=== PATIENT | female | born 1970 | race Caucasian/White ===

== ENCOUNTER 2021-06-07 05:19 | Inpatient (IN) | payer OTHER ==
[~2021-06-07] VITALS: Ht 177.8 cm; Wt 81.8 kg
[2021-06-07 05:46] LABS: BASOPHILS # (AUTO) 0.1 X10'3 (0-0.2); BASOPHILS % (AUTO) 0.6 % (0-1); EOSINOPHILS # (AUTO) 0.1 X10'3 (0-0.9); EOSINOPHILS % (AUTO) 0.7 % (0-6); HEMATOCRIT 38.7 % (35.0-45.0); HEMOGLOBIN 13.1 g/dl (12.0-16.0); LYMPHOCYTES # (AUTO) 2.4 X10'3 (1.1-4.8); LYMPHOCYTES % (AUTO) 27.3 % (21-51); MEAN CORPUSCULAR HEMOGLOBIN 33.4 PG (27.0-31.0); MEAN CORPUSCULAR HGB CONC 33.9 g/dL (33.0-36.5); MEAN CORPUSCULAR VOLUME 98.8 FL (78-98); MEAN PLATELET VOLUME 9.4 FL (7.4-10.4); MONOCYTES # (AUTO) 0.6 X10'3 (0-0.9); MONOCYTES % (AUTO) 6.7 % (2-12); NEUTROPHILS # (AUTO) 5.8 X10'3 (1.8-7.7); NEUTROPHILS % (AUTO) 64.7 % (42-75); PLATELET COUNT 236 X10'3 (140-440); RED BLOOD COUNT 3.92 X10'6 (4.20-5.60); RED CELL DISTRIBUTION WIDTH 14.6 % (11.5-14.5); WHITE BLOOD COUNT 8.9 X10'3 (4.5-11.0)
[2021-06-07] MEDS: heparin 25,000 UNIT/250ml bag 250 ML IV SCH (05:51)
[2021-06-07 05:59] LABS: APTT 37 SECONDS (22-32)
[2021-06-07 06:03] LABS: ALBUMIN 3.5 G/DL (3.4-5.0); ANION GAP 11 (8-16); BLOOD UREA NITROGEN 15 MG/DL (7-18); BUN/CREATININE RATIO 16.3 (6.6-38.0); CHLORIDE 104 MMOL/L (99-107); CREATININE 0.92 MG/DL (0.40-0.90); GLUCOSE 130 MG/DL (70-104); POTASSIUM 3.9 MMOL/L (3.5-5.1); SODIUM 139 MMOL/L (135-145); TOTAL CARBON DIOXIDE 23.9 MMOL/L (24-32); eGFR 65 ML/MIN
--- NOTE | 2021-06-07 13:13 | NUR ---
RESP PAGED FOR LI CONKLIN.
[2021-06-07] MEDS ORDERED: potassium Cl 20 mEq SR tablet PO PRN (13:55)
[2021-06-07] MEDS ORDERED: acetaminophen 325mg tablet PO PRN (13:55)
[2021-06-07] MEDS ORDERED: magnesium 4gm in 100ml NS 100 ML IV PRN (13:55)
[2021-06-07] MEDS ORDERED: magnesium Cl slow-release 64mg tablet PO PRN (13:55)
[2021-06-07] MEDS ORDERED: ondansetron/PF 4mg/2ml inj IV PRN (13:55)
[2021-06-07] MEDS ORDERED: mag hydrox/Alum hydrox/simeth 30ml oral suspension PO PRN (13:55)
[2021-06-07] MEDS ORDERED: magnesium 2GM in 50ml NS 50 ML IV PRN (13:55)
[2021-06-07] MEDS ORDERED: magnesium hydroxide 30ml (MOM) UD suspension PO PRN (13:55)
[2021-06-07] MEDS ORDERED: potassium CL 10mEq/100ml bag 100 ML IV PRN (13:55)
[2021-06-07] MEDS ORDERED: LORazepam 2 mg/ml vial IV PRN (13:55)
[2021-06-07 14:00] LABS: APTT 32 SECONDS (22-32)
[2021-06-07 15:06] LABS: MAGNESIUM 1.7 MG/DL (1.5-2.4)
[2021-06-07 16:58] VITALS: BP 103/66
[2021-06-07] MEDS ORDERED: SACU1TAB PO (17:20)
[2021-06-07] MEDS ORDERED: MIDO10TA PO (17:20)
[2021-06-07] MEDS ORDERED: APIX5TAB3 PO (17:21)
--- NOTE | 2021-06-07 18:27 | NUR ---
Problems reprioritized. Patient report given, questions answered & plan of care reviewed with WISAM Black.
[2021-06-07] MEDS: K and/or MAG REPLACEMENT MC SCH (20:00)
[2021-06-07] MEDS ORDERED: apixaban 5mg tablet PO SCH (20:00)
[2021-06-07] MEDS: furosemide 10 MG/1 ML 10ml inj IV SCH (20:13)
[2021-06-07] MEDS: docusate sod 100mg capsule PO SCH (20:14)
[2021-06-08] MEDS: heparin 10,000 units/1 ML INJ IV PRN ×3 (02:25→17:56)
[2021-06-08] MEDS: heparin 25,000 UNIT/250ml bag 250 ML IV SCH ×2 (02:26→11:49)
[2021-06-08 06:00] VITALS: BP 118/89
--- NOTE | 2021-06-08 06:20 | NUR ---
Problems reprioritized. Patient report given, questions answered & plan of care reviewed with
[2021-06-08 07:48] LABS: BASOPHILS # (AUTO) 0.1 X10'3 (0-0.2); BASOPHILS % (AUTO) 0.6 % (0-1); EOSINOPHILS # (AUTO) 0.2 X10'3 (0-0.9); EOSINOPHILS % (AUTO) 1.8 % (0-6); HEMATOCRIT 36.4 % (35.0-45.0); HEMOGLOBIN 12.6 g/dl (12.0-16.0); LYMPHOCYTES # (AUTO) 2.4 X10'3 (1.1-4.8); LYMPHOCYTES % (AUTO) 27.1 % (21-51); MEAN CORPUSCULAR HEMOGLOBIN 33.9 PG (27.0-31.0); MEAN CORPUSCULAR HGB CONC 34.6 g/dL (33.0-36.5); MEAN CORPUSCULAR VOLUME 98.2 FL (78-98); MEAN PLATELET VOLUME 9.5 FL (7.4-10.4); MONOCYTES # (AUTO) 0.6 X10'3 (0-0.9); MONOCYTES % (AUTO) 6.4 % (2-12); NEUTROPHILS # (AUTO) 5.5 X10'3 (1.8-7.7); NEUTROPHILS % (AUTO) 64.1 % (42-75); PLATELET COUNT 226 X10'3 (140-440); RED BLOOD COUNT 3.71 X10'6 (4.20-5.60); RED CELL DISTRIBUTION WIDTH 14.7 % (11.5-14.5); WHITE BLOOD COUNT 8.7 X10'3 (4.5-11.0)
[2021-06-08] MEDS: K and/or MAG REPLACEMENT MC SCH ×2 (08:00→19:25)
[2021-06-08 08:01] LABS: ALANINE AMINOTRANSFERASE 157 U/L (12-78); ALBUMIN 3.1 G/DL (3.4-5.0); ALBUMIN/GLOBULIN RATIO 0.9 (1.1-1.5); ALKALINE PHOSPHATASE 112 IU/L (46-116); ANION GAP 10 (8-16); ASPARTATE AMINO TRANSFERASE 172 U/L (10-37); BILIRUBIN,TOTAL 1.3 MG/DL (0.1-1.0); BLOOD UREA NITROGEN 18 MG/DL (7-18); BUN/CREATININE RATIO 20.2 (6.6-38.0); CALCIUM 8.3 MG/DL (8.5-10.1); CHLORIDE 104 MMOL/L (99-107); CREATININE 0.89 MG/DL (0.40-0.90); GLUCOSE 112 MG/DL (70-104); POTASSIUM 3.3 MMOL/L (3.5-5.1); SODIUM 138 MMOL/L (135-145); TOTAL CARBON DIOXIDE 24.5 MMOL/L (24-32); TOTAL PROTEIN 6.5 G/DL (6.4-8.2); eGFR 67 ML/MIN
[2021-06-08] MEDS: docusate sod 100mg capsule PO SCH ×2 (09:08→19:32)
[2021-06-08] MEDS: sacubitril/valsartan 24mg-26mg tablet PO SCH (09:11)
[2021-06-08] MEDS: atorvastatin 20mg tablet PO SCH (09:11)
[2021-06-08] MEDS: aspirin 81mg tab.chew PO SCH (09:12)
[2021-06-08] MEDS: midodrine tablet 2.5 MG TABLET PO SCH ×3 (09:12→16:39)
[2021-06-08] MEDS: furosemide 10 MG/1 ML 10ml inj IV SCH ×2 (09:13→19:31)
[2021-06-08] MEDS: potassium Cl 20 mEq SR tablet PO PRN ×3 (09:13→17:12)
[2021-06-08 11:00] VITALS: BP 106/74
[2021-06-08 15:00] VITALS: BP 109/75
[2021-06-08 18:00] VITALS: BP 95/60
--- NOTE | 2021-06-08 18:10 | NUR ---
Patient in room [facility] 319. I have received report from WISAM Hilario and had the opportunity to ask questions and assume patient care.
[2021-06-08] MEDS: nystatin 15 GM powder TP SCH (20:46)
[2021-06-08 22:00] VITALS: BP 117/74
[2021-06-09] MEDS: heparin 10,000 units/1 ML INJ IV PRN (01:59)
[2021-06-09 02:00] VITALS: BP 98/77
[2021-06-09] MEDS: heparin 25,000 UNIT/250ml bag 250 ML IV SCH ×2 (02:04→04:56)
--- NOTE | 2021-06-09 06:00 | NUR ---
Heparin drip stop at [address]Khan copeland.We will continue with pt. care.
--- NOTE | 2021-06-09 06:24 | NUR ---
Problems reprioritized. Patient report given, questions answered & plan of care reviewed with WISAM Andino.
[2021-06-09 06:30] VITALS: BP 109/71
--- NOTE | 2021-06-09 06:52 | NUR ---
[facility] ARCHITECT HAD DC"D heparin drip- nothing charted, but on first morning rounds pt. not on heparin drip and per morgue librarian RN THE ORDER HAD BEEN DC'D
[2021-06-09] MEDS: potassium Cl 20 mEq SR tablet PO PRN (07:19)
[2021-06-09] MEDS: sacubitril/valsartan 24mg-26mg tablet PO SCH (07:19)
[2021-06-09] MEDS: atorvastatin 20mg tablet PO SCH (07:19)
[2021-06-09] MEDS: docusate sod 100mg capsule PO SCH (07:19)
[2021-06-09] MEDS: midodrine tablet 2.5 MG TABLET PO SCH ×2 (07:21→13:42)
[2021-06-09] MEDS: K and/or MAG REPLACEMENT MC SCH (07:21)
[2021-06-09] MEDS: furosemide 10 MG/1 ML 10ml inj IV SCH (07:23)
[2021-06-09] MEDS: nystatin 15 GM powder TP SCH ×2 (07:25→13:00)
[2021-06-09] MEDS: aspirin 81mg tab.chew PO SCH (07:27)
[2021-06-09 08:25] LABS: BASOPHILS # (AUTO) 0.1 X10'3 (0-0.2); BASOPHILS % (AUTO) 0.8 % (0-1); EOSINOPHILS # (AUTO) 0.3 X10'3 (0-0.9); EOSINOPHILS % (AUTO) 3.8 % (0-6); HEMATOCRIT 43.7 % (35.0-45.0); HEMOGLOBIN 14.9 g/dl (12.0-16.0); LYMPHOCYTES # (AUTO) 2.3 X10'3 (1.1-4.8); LYMPHOCYTES % (AUTO) 30.1 % (21-51); MEAN CORPUSCULAR HEMOGLOBIN 33.8 PG (27.0-31.0); MEAN CORPUSCULAR HGB CONC 34.1 g/dL (33.0-36.5); MEAN CORPUSCULAR VOLUME 99.1 FL (78-98); MEAN PLATELET VOLUME 9.8 FL (7.4-10.4); MONOCYTES # (AUTO) 0.6 X10'3 (0-0.9); MONOCYTES % (AUTO) 7.9 % (2-12); NEUTROPHILS # (AUTO) 4.4 X10'3 (1.8-7.7); NEUTROPHILS % (AUTO) 57.4 % (42-75); PLATELET COUNT 264 X10'3 (140-440); RED BLOOD COUNT 4.41 X10'6 (4.20-5.60); WHITE BLOOD COUNT 7.6 X10'3 (4.5-11.0)
[2021-06-09 09:01] LABS: ALANINE AMINOTRANSFERASE 136 U/L (12-78); ASPARTATE AMINO TRANSFERASE 78 U/L (10-37); BILIRUBIN,TOTAL 0.8 MG/DL (0.1-1.0); CREATININE 0.75 MG/DL (0.40-0.90); eGFR 82 ML/MIN
[2021-06-09 09:03] LABS: BLOOD UREA NITROGEN 18 MG/DL (7-18); GLUCOSE 105 MG/DL (70-104); TOTAL CARBON DIOXIDE 23.7 MMOL/L (24-32)
[2021-06-09 09:04] LABS: ALBUMIN 3.3 G/DL (3.4-5.0); ALBUMIN/GLOBULIN RATIO 0.8 (1.1-1.5); ALKALINE PHOSPHATASE 129 IU/L (46-116); CALCIUM 9.4 MG/DL (8.5-10.1); TOTAL PROTEIN 7.3 G/DL (6.4-8.2)
[2021-06-09 10:00] VITALS: BP 95/67
[2021-06-09] MEDS ORDERED: POTA-207 PO (11:23)
[2021-06-09] MEDS ORDERED: CARV3.12 PO (11:23)
[2021-06-09] MEDS ORDERED: FURO-149 PO (11:23)
[2021-06-09] MEDS ORDERED: ATOR20TA66 PO (11:23)
[2021-06-09] MEDS ORDERED: ASPI81TA53 PO (11:23)
--- NOTE | 2021-06-09 11:30 | NUR ---
DISCHARGE NOTE: REVIEWED DISCHARGE PAPERWORK WITH PT. DISCUSSED MEDICATIONS, POSSIBLE ASE, WHEN TO CALL HER MD, F/U CARE WITH NII AND PCP. PT. HAD GOOD VERBAL FEEDBACK. PIVS DC'D, CANNULAS INTACT, NO S/SX BLEEDING, BANDAGE APPLIED. DISCUSSED HOW AND WHEN TO TAKE BP. PT. STATES HE BF IS SUPPOSSED TO PICK HER UP AND TAKE HER TO [facility] TO GET HER MEDS
[2021-06-09 14:34] LABS: POTASSIUM 4.4 MMOL/L (3.3-5.1)
--- NOTE | 2021-06-09 15:33 | NUR ---
PT. APPARENTLY HAVING ISSUES WITH BF. ASKED IF WE COULD PROVIDE RIDE AND PT. REFUSED STATING HER BF IS STILL COMING.
--- NOTE | 2021-06-09 15:40 | NUR ---
PT. CALLED HER BF WHO IS IN [place]. SHE WILL WAIT DOWNSTAIRS FOR HIM. GATHERED ALL OF HER BELONGINGS. PT. DISCHARGED. TELE REMOVED.
== END 2021-06-09 15:49 | disposition home or self-care (01) | DRG 280 ==
LOC: ER 05:20 → ED HOLD 13:57 → EDBEDREQ 14:38 → MED 3N 16:44
PROVIDERS: ADMIT Family Medicine; ATTEND Family Medicine
DX: I21.4 Non-ST elevation (NSTEMI) myocardial infarction (principal); I50.23 Acute on chronic systolic (congestive) heart failure; I42.7 Cardiomyopathy due to drug and external agent; F10.20 Alcohol dependence, uncomplicated; Z20.822 Contact with and (suspected) exposure to COVID-19; F15.10 Other stimulant abuse, uncomplicated; F17.210 Nicotine dependence, cigarettes, uncomplicated; I48.91 Unspecified atrial fibrillation; Z91.14 Patient's other noncompliance with medication regimen; Z88.0 Allergy status to penicillin; Z79.82 Long term (current) use of aspirin; Z71.51 Drug abuse counseling and surveillance of drug abuser; Z71.6 Tobacco abuse counseling
CPT/HCPCS: 36415; 71045; 80048; 80053; 83735; 83880; 84484; 85025; 85610; 85730; 87635; 93005; 93306; 99285; C9803; G0378; J1644; J1940